=== PATIENT | female | born 1970 | race Caucasian/White ===

== ENCOUNTER 2019-07-18 19:39 | Emergency (ER) | payer BC ==
--- NOTE | 2019-07-18 22:03 | ER ---
Nurse's Notes [facility] Name: Suzan Charles Age: 49 yrs Sex: Female : 1970 Arrival Date: 07/18/2019 Time: 19:41 Bed 17 Private MD: Diagnosis: Internal derangement of knee Presentation: 07/18 19:58 Presenting complaint: Patient states: i was walking this afternoon and my knee just mg2 gave out and i fell and hit my knee on the floor. Care prior to arrival: None. Mechanism of Injury: Fall from standing position. 19:58 Method Of Arrival: Wheelchair mg2 19:58 Acuity: MOON 3 mg2 20:00 Transition of care: patient was not received from another setting of care. Onset of rr5 symptoms was July 18, 2019. Risk Assessment: Do you want to hurt yourself or someone else? Patient reports no desire to harm self or others. Initial Sepsis Screen: Does the patient meet any 2 criteria? No. Patient's initial sepsis screen is negative. Does the patient have a suspected source of infection? No. Patient's initial sepsis screen is negative. Historical: - Allergies: 20:05 No Known Allergies; mg2 - Home Meds: 20:05 Prozac Oral [Active]; trazidone [Active]; Buspirone Oral [Active]; meloxicam oral oral mg2 [Active]; - PMHx: 20:05 Depression; mg2 - PSHx: 20:05 Hysterectomy; mg2 - Immunization history: Last tetanus immunization: unknown. - Social history:: Smoking status: unknown. - Ebola Screening: : Patient negative for fever greater than or equal to 101.5 degrees Fahrenheit, and additional compatible Ebola Virus Disease symptoms Patient denies exposure to infectious person Patient denies travel to an Ebola-affected area in the 21 days before illness onset. Screenin:00 Abuse screen: Denies threats or abuse. Denies injuries from another. Nutritional rr5 screening: No deficits noted. Tuberculosis screening: No symptoms or risk factors identified. Fall Risk Fall in past 12 months (25 points). Gait- Normal/Bed Rest/Wheelchair (0 pts) Total Harvey Fall Scale indicates Low Risk Score (25-44 pts). Fall prevention measures have been instituted. Side Rails Up X 2 Placed close to Nursing Station Frequent Obs/Assesments occuring Family Present and informed to notify staff if they need to leave bedside As available Patient and Family Educated on Fall Prevention Program and strategies. Assessment: 20:05 General: Appears in no apparent distress. uncomfortable, Behavior is calm, cooperative, rr5 appropriate for age. 20:05 Pain: Complains of pain in left knee Pain radiates to left calf Pain currently is 7 out rr5 of 10 on a pain scale. Quality of pain is described as aching, Pain began suddenly, Is intermittent. Neuro: Level of Consciousness is awake, alert, obeys commands, Oriented to person, place, time, situation, Appropriate for age. Cardiovascular: Capillary refill < 3 seconds Patient's skin is warm and dry. Respiratory: Airway is patent Respiratory effort is even, unlabored, Respiratory pattern is regular, symmetrical. GI: No signs and/or symptoms were reported involving the gastrointestinal system. : No signs and/or symptoms were reported regarding the genitourinary system. EENT: No signs and/or symptoms were reported regarding the EENT system. Derm: Skin is intact, Skin temperature is warm. Musculoskeletal: Circulation, motion, and sensation intact. Capillary refill < 3 seconds, Reports pain in left calf and left knee. 21:30 Reassessment: Patient appears in no apparent distress at this time. Patient is alert, rr5 oriented x 3, equal unlabored respirations, skin warm/dry/pink. ultrasound procedure done at bedside. Vital Signs: 20:03 BP 114 / 83; Pulse 77; Resp 18; Temp 98.4; Pulse Ox 100% on R/A; Weight 84.37 kg; mg2 Height 5 ft. 8 in. (172.72 cm); Pain 7/10; 21:15 BP 105 / 70; Pulse 79; Resp 19; Pulse Ox 98% ; rr5 22:15 BP 99 / 65; Pulse 75; Resp 17; Temp 97.7; Pulse Ox 98% ; rr5 20:03 Body Mass Index 28.28 (84.37 kg, 172.72 cm) mg2 [place] Coma Score: 20:03 Eye Response: spontaneous(4). Verbal Response: oriented(5). Motor Response: obeys mg2 commands(6). Total: 15. Trauma Score (Adult): 20:03 Eye Response: spontaneous(1); Verbal Response: oriented(1); Motor Response: obeys mg2 commands(2); Systolic BP: > 89 mm Hg(4); Respiratory Rate: 10 to 29 per min(4); [place] Score: 15; Trauma Score: 12 ED Course: 19:41 Patient arrived in ED. cf2 20:03 Emil Gonzales PA is PHCP. [facility] 20:03 Satish Tijerina MD is Attending Physician. jmm 20:03 Triage completed. mg2 20:05 Patient has correct armband on for positive identification. mg2 20:05 Arm band placed on. rr5 20:14 Jim Shin, RN is Primary Nurse. rr5 20:56 Knee Left 3 View XRAY In Process Unspecified. EDMS 21:50 Ultrasound completed. Patient tolerated well. Notified SATELLITE DISH REPAIRER/PA . sg3 21:50 US Extremity Venous Unilateral Ltd In Process Unspecified. EDMS 22:00 Knee immobilizer applied on left knee. rr5 22:00 No provider procedures requiring assistance completed. rr5 22:01 Bob Kahn MD is Referral Physician. [facility] 22:23 Patient did not have IV access during this emergency room visit. rr5 Administered Medications: No medications were administered Intake: 20:03 PO: 0ml; Total: 0ml. mg2 Outcome: 22:02 Discharge ordered by . [facility] 22:23 Discharged to home ambulatory. rr5 22:23 Condition: stable 22:23 Discharge instructions given to patient, family, Instructed on discharge instructions, follow up and referral plans. Demonstrated understanding of instructions, follow-up care. 22:26 Patient left the ED. rr5 Signatures: Dispatcher [employer] EDUT Emil Gonzales PA PA [facility] Piedad Saha sg3 [place], MARIO RN mg2 Jim Shin, RN RN rr5 [place] cf2
--- NOTE | 2019-07-18 22:03 | EDPHYS ---
Physician Documentation [facility] Name: Suzan Charles Age: 49 yrs Sex: Female : 1970 Arrival Date: 07/18/2019 Time: 19:41 Bed 17 Private MD: ED Physician Satish Tijerina HPI: 07/18 20:42 This 49 yrs old Female presents to ER via Wheelchair with complaints of Fall jmm Injury, Knee Pain. 20:42 Details of fall: The patient fell from an upright position, while walking. Onset: The jmm symptoms/episode began/occurred acutely, just prior to arrival. Associated injuries: The patient sustained left knee. This is a 49 year old female with a history of depression that presents to the ED with complaints of left pain which has been chronic. patient states just prior to arrival he left knee gave out while walking down stairs, patient denies any other injury. Denies head injury. . Historical: - Allergies: 20:05 No Known Allergies; mg2 - Home Meds: 20:05 Prozac Oral [Active]; trazidone [Active]; Buspirone Oral [Active]; meloxicam oral oral mg2 [Active]; - PMHx: 20:05 Depression; mg2 - PSHx: 20:05 Hysterectomy; mg2 - Immunization history: Last tetanus immunization: unknown. - Social history:: Smoking status: unknown. - Ebola Screening: : Patient negative for fever greater than or equal to 101.5 degrees Fahrenheit, and additional compatible Ebola Virus Disease symptoms Patient denies exposure to infectious person Patient denies travel to an Ebola-affected area in the 21 days before illness onset. ROS: 20:42 Constitutional: Negative for fever, chills, and weight loss, Cardiovascular: Negative jmm for chest pain, palpitations, and edema, Respiratory: Negative for shortness of breath, cough, wheezing, and pleuritic chest pain. 20:42 MS/extremity: Positive for injury or acute deformity, pain, swelling. 20:42 All other systems are negative. Exam: 20:42 Constitutional: This is a well developed, well nourished patient who is awake, alert, jmm and in no acute distress. Head/Face: atraumatic. Eyes: EOMI, no conjunctival erythema appreciated ENT: Moist Mucus Membranes Neck: Trachea midline, Supple Chest/axilla: Normal chest wall appearance and motion. Cardiovascular: Regular rate and rhythm. No edema appreciated Respiratory: Normal respirations, no respiratory distress appreciated Abdomen/GI: Non distended, soft Back: Normal ROM 20:42 Musculoskeletal/extremity: swelling noted to the left knee, painful passive rom, noted, compartments are soft, NVI, full dorsalis pulse, pain on palpation the left anterolateral knee. . 20:42 Skin: Appearance: Color: normal in color. 20:42 Neuro: Orientation: is normal, Mentation: is normal, Memory: is normal. 20:42 Psych: Behavior/mood is pleasant, cooperative. Vital Signs: 20:03 BP 114 / 83; Pulse 77; Resp 18; Temp 98.4; Pulse Ox 100% on R/A; Weight 84.37 kg; mg2 Height 5 ft. 8 in. (172.72 cm); Pain 7/10; 21:15 BP 105 / 70; Pulse 79; Resp 19; Pulse Ox 98% ; rr5 22:15 BP 99 / 65; Pulse 75; Resp 17; Temp 97.7; Pulse Ox 98% ; rr5 20:03 Body Mass Index 28.28 (84.37 kg, 172.72 cm) mg2 [place] Coma Score: 20:03 Eye Response: spontaneous(4). Verbal Response: oriented(5). Motor Response: obeys mg2 commands(6). Total: 15. Trauma Score (Adult): 20:03 Eye Response: spontaneous(1); Verbal Response: oriented(1); Motor Response: obeys mg2 commands(2); Systolic BP: > 89 mm Hg(4); Respiratory Rate: 10 to 29 per min(4); [place] Score: 15; Trauma Score: 12 MDM: 20:30 Patient medically screened. [facility] 21:59 Data reviewed: vital signs, nurses notes. Counseling: I had a detailed discussion with francis the patient and/or guardian regarding: the historical points, exam findings, and any diagnostic results supporting the discharge/admit diagnosis, radiology results, the need for outpatient follow up, to return to the emergency department if symptoms worsen or persist or if there are any questions or concerns that arise at home. ED course: Patient advised to follow up with ortho for reevaluation. Patient otherwise given strict return precautions. Patient understood and agrees with the plan of care. . 07/18 20:40 Order name: Knee Left 3 View XRAY [facility] 07/18 20:40 Order name: US Extremity Venous Unilateral Ltd [facility] 07/18 21:40 Order name: Knee Immobilizer; Complete Time: 22:22 [facility] Administered Medications: No medications were administered Disposition: 07/18/19 22:02 Discharged to Home. Impression: Internal derangement of knee. - Condition is Stable. - Discharge Instructions: Knee Pain. - Medication Reconciliation Form, Thank You Letter, Antibiotic Education, Prescription Opioid Use form. - Follow up: Bob Kahn MD; When: 2 - 3 days; Reason: Recheck today's complaints, Continuance of care, Re-evaluation by your physician. Addendum: 07/21/2019 14:51 Co-signature as Attending Physician, Satish Tijerina MD. g s Signatures: Dispatcher [employer] EDMS Emil Gonzales PA PA jmm Starr, Gregory, MD MD [place] RN RN [facility] Jim Shin RN RN rr5 Corrections: (The following items were deleted from the chart) 07/18 22:26 22:02 07/18/2019 22:02 Discharged to Home. Impression: Internal derangement of knee. rr5 Condition is Stable. Forms are Medication Reconciliation Form, Thank You Letter, Antibiotic Education, Prescription Opioid Use. Follow up: Dr. Bob Kahn; When: 2 - 3 days; Reason: Recheck today's complaints, Continuance of care, Re-evaluation by your physician. [facility]
[2019-07-18 22:31] VITALS: O2SAT 98
[2019-07-18 22:32] VITALS: BP 99/65; TEMP 97.7
--- NOTE | 2019-07-19 08:27 | RAD REPORT ---
EXAM DESCRIPTION: US - Extremity Venous Uni Ltd - 07/18/2019 9:49 pm CLINICAL HISTORY: Left leg pain and swelling Preliminary findings provided at the time of the study. COMPARISON: None. TECHNIQUE: Real-time sonographic evaluation of the left lower extremity deep venous system was perfo rmed. FINDINGS: Normal compressibility, flow augmentation, phasic flow and spontaneous flow are identified in the left lower extremity common femoral, superficial femoral, popliteal and posterior tibial vein s. No intraluminal filling defects seen. IMPRESSION: No DVT in the left lower extremity.
--- NOTE | 2019-07-19 08:56 | RAD REPORT ---
EXAM DESCRIPTION: RAD - Knee Left 3 View - 07/18/2019 8:56 pm CLINICAL HISTORY: Fall, left knee pain COMPARISON: None. FINDINGS: No fracture, dislocation or periosteal reaction.Small joint effusion is present. No joint space narrowing. Small calcification is present in the soft tissues anterior to the patella tendon. T his is not an acute process. There is mild congestion or edema in the subcutaneous fatty tissues ante rior to the knee. IMPRESSION: Small joint effusion with no acute bone or joint finding. Small calcification in the soft tissues anterior to the patella tendon likely from a remote injury. Clinical concerns for internal derangement or occult bony injury could be further assessed with MR im aging.
== END 2019-07-18 22:26 | disposition home or self-care (01) ==
LOC: ER 19:39
DX: M23.92 Unspecified internal derangement of left knee (principal); W18.30XA Fall on same level, unspecified, initial encounter; Y93.9 Activity, unspecified; Y92.9 Unspecified place or not applicable
CPT/HCPCS: 93971; 99283